=== PATIENT | female | born 2000 | race Caucasian/White ===

== ENCOUNTER 2022-11-04 04:03 | Emergency (ER) | payer OTHER ==
[~2022-11-04] VITALS: Ht 124.5 cm; Wt 107.2 kg
[2022-11-04 05:40] VITALS: BP 97/55
[2022-11-04 06:12] LABS: BASOPHILS % 0.9 % (0.0-2.0); EOSINOPHILS % 2.7 % (0.0-5.0); HEMATOCRIT. 38.5 % (36.0-48.0); HEMOGLOBIN. 12.7 g/dL (12.0-16.0); LYMPHOCYTES % 20.6 % (20.0-50.0); MEAN CORPUSCULAR HEMOGLOBIN 26.7 pg (28.0-32.0); MEAN CORPUSCULAR VOLUME 80.7 fL (81.0-99.0); MEAN PLATELET VOLUME 7.6 fl (7.4-10.4); MONOCYTES % 5.9 % (2.0-8.0); NEUTROPHILS % 69.9 % (40.0-76.0); PLATELET 388 x1000/uL (130-400); RED BLOOD CELL COUNT 4.77 mill/uL (4.2-5.4); RED CELL DISTRIBUTION WIDTH 14.9 % (11.6-14.6)
[2022-11-04 06:24] LABS: CHLORIDE 108 mEq/L (98-107)
[2022-11-04] MEDS ORDERED: TOPUD PO (07:30)
== END 2022-11-04 08:10 | disposition home or self-care (01) ==
LOC: ER 04:03
DX: R07.89 Other chest pain (principal)
CPT/HCPCS: 36415; 71045; 80053; 83880; 84484; 85025; 93005; 99285; Z7610